=== PATIENT | male | born 1995 | race Caucasian/White ===

== ENCOUNTER 2017-10-18 11:12 | Emergency (ER) | payer OTHER ==
[2017-10-18] MEDS ORDERED: Tetan/Diph/Pertus SYR(Tdap)* 0.5 ML SYR(BOOSTRIX) use SYR IM ONE (12:14)
--- NOTE | 2017-10-18 12:59 | ED ---
Head Injury - HPI Summary HPI Summary: Patient presents with injury to his right scalp while mowing a lawn today. He was on a 0 turn more when he saw something black moving past his head, felt a striking pain to the head and then noticed blood coming from his scalp. Denies loss of consciousness. He's not sure if something flew up at him or he scraped his head on an over hanging branch. He has a focal headache and had nausea earlier however denies photophobia, vomiting, neck pain or stiffness, numbness, tingling, weakness, issues with balance, change in vision, difficult he breathing or swallowing. He needs to update his tetanus vaccine. Bleeding stopped on its own on the way here. - History Of Current Complaint Chief Complaint: EDLacSutureRecheck Stated Complaint: HEAD LAC Time Seen by Provider: 10/18/17 12:13 Hx Obtained From: Patient Pain Intensity: 6 - Allergies/Home Medications Allergies/Adverse Reactions: Allergies Allergy/AdvReac Type Severity Reaction Status Date / Time No Known Allergies Allergy Verified 10/18/17 11:29 Home Medications: Home Medications Amoxicillin PO (*) [Amoxicillin 500 MG CAP*] 500 mg PO TID 10/18/17 [History Confirmed 10/18/17] Diflunisal TAB* [Dolobid TAB*] 500 mg PO Q8H PRN 10/18/17 [History Confirmed 03/27] PMH/Surg Hx/FS Hx/Imm Hx Previously Healthy: Yes Endocrine/Hematology History: Denies: Hx Anticoagulant Therapy, Hx Blood Disorders, Autoimmune Disease - Immunization History Date of Tetanus Vaccine: unknown Immunizations Up to Date: No Infectious Disease History: No Infectious Disease History: Denies: Hx of Known/Suspected MRSA, Traveled Outside the [place] in Last 30 Days - Social History Occupation: Employed Full-time - lawn care Lives: Dormitory/Roommates Alcohol Use: None Hx Substance Use: No Substance Use Type: Reports: None Hx Tobacco Use: Yes Smoking Status (MU): Current Every Day Smoker Amount Used/How Often: 1/2 PPD Review of Systems Constitutional: Negative Negative: Fatigue Eyes: Negative Negative: Photophobia, Blurred Vision, Diplopia ENT: Negative Negative: Epistaxis, Dental Pain, Ear Ache Cardiovascular: Negative Negative: Shortness Of Breath Gastrointestinal: Negative Positive: no symptoms reported Musculoskeletal: Negative Skin: Other - lac Positive: Headache. Negative: Weakness, Paresthesia, Numbness, Syncope, Slurred Speech Psychological: Normal All Other Systems Reviewed And Are Negative: Yes Physical Exam Triage Information Reviewed: Yes Vital Signs On Initial Exam: Initial Vitals Temp Pulse Resp BP Pulse Ox 97.5 F 54 17 119/85 100 18 11:26 18 11:26 18 11:26 18 11:26 10/18/17 11:26 Vital Signs Reviewed: Yes Appearance: Positive: Well-Appearing, Pain Distress - mild - declines ibuprofen/ acetaminophen Skin: Positive: Warm, Skin Color Reflects Adequate Perfusion - jagged lac to Rt parietal region - clean - oozing blood; mild TTP Head/Face: Positive: Normal Head/Face Inspection - otherwise atraumatic; no step off, no battlesign, no racoon eyes, no crepitus Eyes: Positive: Normal, EOMI, [place] - no photophobia ENT: Positive: Normal ENT inspection, Hearing grossly normal, Pharynx normal - atraumatic, TMs normal Dental: Negative: Dental Fracture @ Neck: Positive: Supple, Nontender Respiratory/Lung Sounds: Positive: Breath Sounds Present Cardiovascular: Positive: Normal Musculoskeletal: Positive: Normal, Strength/ROM Intact Neurological: Positive: Normal, Sensory/Motor Intact, Alert, Oriented to Person Place, Time, CN Intact II-III Psychiatric: Positive: Normal - glascow coma 15 Procedures - Laceration/Wound Repair 1 Location: head Description: Irregular Length, Depth and Shape: 1cm x 3mm Irrigated w/ Saline (ccs): 50 - saline + antiseptic Laceration/Wound Explored: clean Closure: Donita #__ - 2 - hemodynamically stable Layer Closure?: No Sterile Dressing Applied?: No - triple anbx ointment - pt tolerated well Diagnostics - Vital Signs Vital Signs Temp Pulse Resp BP Pulse Ox 10/18/17 11:26 97.5 F 54 17 119/85 100 - Laboratory Lab Statement: Any lab studies that have been ordered have been reviewed, and results considered in the medical decision making process. Head Injury Course/Dx - Diagnoses Provider Diagnoses: Head injury, Scalp laceration Discharge - Sign-Out/Discharge Documenting (check all that apply): Discharge/Admit/Transfer - Discharge Plan Condition: Stable Disposition: HOME Patient Education Materials: Laceration (ED), Staple Care (ED), Head Injury (ED ) Forms: *Work Release Referrals: No Primary Care Phys,NOPCP [Primary Care Provider] - [facility] [Outside] Additional Instructions: Gently wash wound with soap and water, rinse well and pat dry with clean cloth. Reapply triple antibiotic ointment. Continue this daily until donita are removed. Call your PCP to schedule wound recheck and staple removal in 7 days. You may return to ED, go to urgent care or go to [facility] (information provided here). For your headache, you may apply ice, stay hydrated and take ibuprofen and/or acetaminophen - rest for the next 2 days. If symptoms persist, seek medical care. If worse, return to ED * If you develop redness, swelling, streaking, purulent drainage, fevers or chills, seek medical attention sooner. - Billing Disposition and Condition Condition: STABLE Disposition: Home
[2017-10-18 13:21] VITALS: BP 126/85
== END 2017-10-18 13:20 | disposition home or self-care (01) ==
LOC: ED 11:12
DX: S01.01XA Laceration without foreign body of scalp, initial encounter (principal); S09.90XA Unspecified injury of head, initial encounter; W22.8XXA Striking against or struck by other objects, initial encounter; Y93.H9 Activity, other involving exterior property and land maintenance, building and construction; Y92.007 Garden or yard of unspecified non-institutional (private) residence as the place of occurrence of the external cause; Z23 Encounter for immunization; F17.210 Nicotine dependence, cigarettes, uncomplicated
CPT/HCPCS: 12001; 90471; 90715; 99282